=== PATIENT | female | born 1995 | race Caucasian/White ===

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

== ENCOUNTER 2017-02-04 18:30 | Emergency (ER) | payer OTHER ==
[2017-02-04 18:38] VITALS: BP 132/78; PULSE 133; TEMP 98.4; BMI 21.7
--- NOTE | 2017-02-04 19:53 | PDOC ---
History of Present Illness <Olinda Carrasco - Last Filed: 02/05/17 00:33> <Araseli Campoverde - Last Filed: 02/06/17 02:24> - General Chief Complaint: Pain Stated Complaint: PAIN Time Seen by Provider: 02/04/17 19:28 - History of Present Illness Initial Comments: 02/04/17 22:01 Patient is a 21 year old female with significant medical hx of IUD insertion, asthma, migraines, and hemorrhoids who is presenting to the ED with epigastric pain and one episode of vomiting since yesterday. The patient complains of abdominal pain that is diffuse but worse in her epigastric region. She also complains of bilateral lower back pain. Denies fevers, chills, diarrhea, or dysuria. The patient denies any sick contacts and reports her children have been healthy. LNMP: 12/2016 Allergies: NKDA (Olinda Carrasco) Past History <DaniloOlinda - Last Filed: 02/05/17 00:33> - Past Medical History Asthma: Yes (Last attack 8yrs ago) Cancer: No Cardiac Disorders: No Diabetes: No HTN: No Seizures: No Thyroid Disease: No - Family Disease History Family Disease History: Diabetes: Grandparents (MGM) - Immunization History Immunization Up to Date: Yes - Psycho/Social/Smoking Cessation Hx Anxiety: No Suicidal Ideation: No Smoking Status: No Smoking History: Current some day smoker Have you smoked in the past 12 months: No Number of Cigarettes Smoked Daily: 3 Information on smoking cessation initiated: No Hx Alcohol Use: No Drug/Substance Use Hx: No Substance Use Type: None Hx Substance Use Treatment: No <Araseli Campoverde - Last Filed: 02/06/17 02:24> - Past Medical History Allergies/Adverse Reactions: Allergies Allergy/AdvReac Type Severity Reaction Status Date / Time latex Allergy Mild Swelling Verified 02/04/17 18:36 [place] FOOD Allergy Intermediate Swelling Uncoded 02/04/17 18:36 Home Medications: Ambulatory Orders Ibuprofen 800 mg PO TID PRN #21 tablet 10/23/16 Review of Systems <Olinda Carrasco - Last Filed: 02/05/17 00:33> <Araseli Campoverde - Last Filed: 02/06/17 02:24> - Review of Systems Comments:: 02/04/17 22:03 CONSTITUTIONAL: Absent: fever, chills, diaphoresis, generalized weakness, malaise, loss of appetite HEENT: Absent: rhinorrhea, nasal congestion, throat pain, throat swelling, difficulty swallowing, mouth swelling, ear pain, eye pain, visual changes CARDIOVASCULAR: Absent: chest pain, syncope, palpitations, irregular heart rate, lightheadedness , peripheral edema RESPIRATORY: Absent: cough, shortness of breath, dyspnea with exertion, orthopnea, wheezing, stridor, hemoptysis GASTROINTESTINAL: Present: abdominal pain, nausea, vomiting Absent: abdominal distension, diarrhea, constipation, melena, hematochezia GENITOURINARY: Absent: dysuria, frequency, urgency, hesitancy, hematuria, flank pain, genital pain MUSCULOSKELETAL: Present: lower back pain Absent: myalgia, arthralgia, joint swelling SKIN: Absent: rash, itching, pallor HEMATOLOGIC/IMMUNOLOGIC: Absent: easy bleeding, easy bruising, lymphadenopathy, frequent infections ENDOCRINE: Absent: unexplained weight gain, unexplained weight loss, heat intolerance, cold intolerance NEUROLOGIC: Absent: headache, focal weakness or paresthesia, dizziness, unsteady gait, seizure, mental status changes, bladder or bowel incontinence. PSYCHIATRIC: Absent: anxiety, depression, suicidal or homicidal ideation, hallucinations (Olinda Carrasco) *Physical Exam <Olinda Carrasco - Last Filed: 02/05/17 00:33> <Araseli Campoverde - Last Filed: 02/06/17 02:24> - Vital Signs Last Vital Signs Temp Pulse Resp BP Pulse Ox 98.4 F 133 H 18 132/78 100 02/04/17 18:36 02/04/17 18:36 02/04/17 18:36 02/04/17 18:36 02/04/17 18:36 - Physical Exam Comments: 02/04/17 22:03 GENERAL: Well developed, well nourished. Awake and alert. No acute distress. HEENT: Normocephalic, atraumatic. PERRLA, EOMI. No conjunctival pallor. Sclera are non- icteric. Moist mucous membranes. Oropharynx is clear. NECK: Supple. Full ROM. No JVD. Carotid pulses 2+ and symmetric, without bruits. No thyromegaly. No lymphadenopathy. CARDIOVASCULAR: Regular rate and rhythm. No murmurs, rubs, or gallops. Distal pulses are 2+ and symmetric. PULMONARY: No evidence of respiratory distress. Lungs clear to auscultation bilaterally. No wheezing, rales or rhonchi. ABDOMINAL: Soft. Epigastric and periumbilical tenderness to palpation. Non-distended. No rebound or guarding. No organomegaly. Normoactive bowel sounds. MUSCULOSKELETAL: Normal range of motion at all joints. No bony deformities or tenderness. No CVA tenderness. EXTREMITIES: No cyanosis. No clubbing. No edema. No calf tenderness. SKIN: Warm and dry. Normal capillary refill. No rashes. No jaundice. NEUROLOGICAL: Alert, awake, appropriate. Cranial nerves 2-12 intact. Normal speech. Gait is normal without ataxia. PSYCHIATRIC: Cooperative. Good eye contact. Appropriate mood and affect. (Olinda Carrasco) ED Treatment Course - LABORATORY CBC & Chemistry Diagram: 02/04/17 21:00 02/04/17 21:00 <Olinda Carrasco - Last Filed: 02/05/17 00:33> - LABORATORY CBC & Chemistry Diagram: 02/04/17 21:00 02/04/17 21:00 <Araseli Campoverde - Last Filed: 02/06/17 02:24> - ADDITIONAL ORDERS Additional order review: Laboratory Results 02/04/17 22:05 Ur Specific [place] 1.020 02/04/17 21:00 RBC 4.35 MCV 95.0 MCHC 32.8 RDW 12.7 MPV 7.9 Neutrophils % 88.4 H D Lymphocytes % 7.5 L D Monocytes % 3.7 L Eosinophils % 0.3 D Basophils % 0.1 - RADIOLOGY Radiology Studies Ordered: Category Date Time Status ABDOMEN & PELVIS CT WITH CONTR [CT] Stat CT Scan 02/05/17 01:46 Completed ABDOMEN US -LIMITED [US] Stat Ultrasound 02/04/17 22:44 Completed Radiograph Interpretation: 02/05/17 00:34 Abdomen US Impression: Unremarkable examination. No gallstones are identified. Reported By: Vadim Marroquin MD (Olinda Carrasco) - Medications Given in the ED: ED Medications Discontinued Medications Generic Name Dose Route Start Last Admin Trade Name Freq PRN Reason Stop Dose Admin Sodium Chloride 1,000 mls @ 1,000 mls/hr 02/04/17 20:14 02/04/17 21:57 Normal Saline - IV 02/04/17 21:13 1,000 mls/hr ASDIR STA Administration Ondansetron HCl 4 mg 02/04/17 20:14 02/04/17 21:57 Zofran Injection IVPB 02/04/17 20:15 4 mg ONCE ONE Administration Medical Decision Making <Olinda Carrasco - Last Filed: 02/05/17 00:33> <Araseli Campoverde - Last Filed: 02/06/17 02:24> - Medical Decision Making 02/05/17 03:11 17-year-old female presents with vomiting and abdominal pain for one day Negative test Normal CBC Chemistries essentially unremarkable CAT scan of the abdomen shows normal appendix, normal pelvis, no discrete lymphadenopathy, no obstructing kidney stones. Normal liver, gallbladder, pancreas, spleen, adrenal glands and left kidney. There are 2 tiny nonobstructing right kidney stones IMP Gastritis 02/06/17 02:24 (Araseli Campoverde) *DC/Admit/Observation/Transfer <Olinda Carrasco - Last Filed: 02/05/17 00:33> <Araseli Campoverde - Last Filed: 02/06/17 02:24> Diagnosis at time of Disposition: Abdominal pain Qualifiers: Abdominal location: periumbilical Qualified Code(s): R10.33 - Periumbilical pain Vomiting Qualifiers: Vomiting type: unspecified Vomiting Intractability: non-intractable Nausea presence: with nausea Qualified Code(s): R11.2 - Nausea with vomiting, unspecified - Discharge Dispostion Disposition: HOME Condition at time of disposition: Improved - Referrals Referrals: Joe Buck MD [Primary Care Provider] - - Patient Instructions Printed Discharge Instructions: DI for Abdominal Pain-Adult, DI for Gastritis Additional Instructions: please advance your diet as tolerated - Attestations Scribe Attestion: 02/04/17 22:04 Documentation prepared by Olinda Carrasco, acting as medical support assistant for Araseli Campoverde MD. (Olinda Carrasco)
[2017-02-04] MEDS ORDERED: SODIUM CHLORIDE 1,000 ML IV STA (20:14)
[2017-02-04] MEDS ORDERED: ONDANSETRON 4 MG/2 ML VIAL IVPB ONE (20:14)
[2017-02-04 21:39] LABS: BASOPHIL 0.1 % (0-2.0); EOSINOPHIL 0.3 % (0-4.5); MCH 31.2 pg (25.7-33.7); MCHC 32.8 g/dl (32.0-36.0); MEAN PLT VOLUME 7.9 fl (7.5-11.1); NEUTROPHILS 88.4 % (42.8-82.8); PLATELET COUNT 178 K/MM3 (134-434); RDW 12.7 % (11.6-15.6); WHITE BLOOD COUNT 6.3 K/mm3 (4.0-10.0)
[2017-02-04] MEDS ORDERED: ONDANSETRON 4 MG/2 ML VIAL ONE (21:40)
[2017-02-04 22:09] LABS: ALBUMIN 4.3 g/dl (3.4-5.0); ALK PHOS 48 U/L (45-117); ANION GAP 9 (8-16); BILIRUBIN,TOTAL 1.3 mg/dL (0.2-1.0); CO2 25 mmol/L (21-32); CREATININE 0.6 mg/dL (0.55-1.02); GLUCOSE,RANDOM 90 mg/dL (74-106); SGOT/AST 11 U/L (15-37); SGPT/ALT 17 U/L (12-78); TOT PROT 7.3 g/dl (6.4-8.2)
[2017-02-04 22:58] LABS: URINE APPEARANCE CLEAR; URINE BILIRUBIN NEGATIVE (NEGATIVE); URINE BLOOD NEGATIVE (NEGATIVE); URINE COLOR YELLOW; URINE GLUCOSE (UA) NEGATIVE (NEGATIVE); URINE KETONE NEGATIVE (NEGATIVE); URINE LEUK ESTERASE NEGATIVE (NEGATIVE); URINE NITRITE NEGATIVE (NEGATIVE); URINE PROTEIN NEGATIVE (NEGATIVE); URINE UROBILINOGEN 2.0 E.U/dl E.U./dl (0.2-1.0)
== END 2017-02-05 03:30 | disposition home or self-care (01) ==
LOC: JER 18:30
PROC: 3E033GC Introduction of Other Therapeutic Substance into Peripheral Vein, Percutaneous Approach (ICD-10-PCS; principal; 2017-02-04)
DX: K29.00 Acute gastritis without bleeding (principal); J45.909 Unspecified asthma, uncomplicated; G43.909 Migraine, unspecified, not intractable, without status migrainosus; F17.210 Nicotine dependence, cigarettes, uncomplicated; Z97.5 Presence of (intrauterine) contraceptive device
CPT/HCPCS: 36415; 74177-TC; 76705-TC; 80053; 81003; 83690; 84703; 85025; 96374; 99282-25

== ENCOUNTER 2018-03-18 16:51 | Emergency (ER) | payer OTHER ==
[2018-03-18 16:58] VITALS: BP 132/79; PULSE 112; TEMP 99.6; BMI 21.9
--- NOTE | 2018-03-18 17:06 | PDOC ---
Rapid Medical Evaluation Chief Complaint: Sore Throat Time Seen by Provider: 03/18/18 17:02 Medical Evaluation: Allergies Allergy/AdvReac Type Severity Reaction Status Date / Time latex Allergy Mild Swelling Verified 03/18/18 16:56 [place] FOOD Allergy Intermediate Swelling Uncoded 03/18/18 16:56 Vital Signs Temp Pulse Resp BP Pulse Ox 99.6 F 112 H 18 132/79 97 03/18/18 16:57 03/18/18 16:57 03/18/18 16:57 03/18/18 16:57 03/18/18 16:57 03/18/18 17:05 Patient c/o: sore throat and fever since this am Patient on brief exam: mild erthema, low grade temp Patient ordered for: rapid strep Patient to proceed to the ED Discharge Disposition - Diagnosis Sore throat - Referrals - Patient Instructions - Post Discharge Activity
[2018-03-18] MEDS ORDERED: PENICILLIN G BENZATHINE 1,200,000 UNIT/2 ML PFS IM ONE (17:31)
[2018-03-18] MEDS ORDERED: PENICILLIN G BENZATHINE 2,400,000 UNIT/4 ML PFS ONE (17:36)
--- NOTE | 2018-03-18 17:39 | PDOC ---
History of Present Illness - General Chief Complaint: Sore Throat Stated Complaint: PAIN Time Seen by Provider: 03/18/18 17:02 History Source: Patient Exam Limitations: No Limitations - History of Present Illness Occurred: reports: yesterday Severity: reports: moderate Pain Location: reports: none Modifying Factors: improves with: pain medication Associated Symptoms (Fall): lightheadedness, nausea/vomiting Past History - Travel Traveled outside of the country in the last 30 days: No Close contact w/someone who was outside of country & ill: No - Past Medical History Allergies/Adverse Reactions: Allergies Allergy/AdvReac Type Severity Reaction Status Date / Time latex Allergy Mild Swelling Verified 03/18/18 16:56 [place] FOOD Allergy Intermediate Swelling Uncoded 03/18/18 16:56 Home Medications: Ambulatory Orders Ibuprofen 400 mg PO Q6H PRN #30 tablet 03/18/18 Asthma: Yes (Last attack 8yrs ago) Cancer: No Cardiac Disorders: No CVA: No COPD: No Diabetes: No HTN: No Seizures: No Thyroid Disease: No - Family Disease History Family Disease History: Diabetes: Grandparents (MGM) - Immunization History Immunization Up to Date: Yes - Suicide/Smoking/Psychosocial Hx Smoking Status: No Smoking History: Former smoker Have you smoked in the past 12 months: Yes Number of Cigarettes Smoked Daily: 2 If you are a former smoker, when did you quit?: 2 months ago Information on smoking cessation initiated: No Hx Alcohol Use: No Drug/Substance Use Hx: No Substance Use Type: None Hx Substance Use Treatment: No Review of Systems - Review of Systems Able to Perform ROS?: Yes Is the patient limited Maori proficient: Yes Constitutional: Yes: Symptoms Reported, See HPI, Fever, Loss of Appetite, Malaise HEENTM: Yes: Symptoms Reported, See HPI, Nose Congestion, Throat Pain, Throat Swelling, Difficulty Swallowing Respiratory: Yes: See HPI, Cough Musculoskeletal: Yes: Symptoms Reported, See HPI Integumentary: No: Symptoms Reported Neurological: Yes: Symptoms reported, See HPI, Headache All Other Systems: Reviewed and Negative *Physical Exam - Vital Signs Last Vital Signs Temp Pulse Resp BP Pulse Ox 99.6 F 112 H 18 132/79 97 03/18/18 16:57 03/18/18 16:57 03/18/18 16:57 03/18/18 16:57 03/18/18 16:57 - Physical Exam General Appearance: Yes: Nourished, Appropriately Dressed, Apparent Distress, Mild Distress, Moderate Distress HEENT: positive: DIA, TMs Normal (congested ), Pharyngeal Erythema, Tonsillar Exudate, Tonsillar Erythema, Rhinorrhea, Sinus Tenderness. 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 1 owner operator II-XII NML intact, Fully Oriented, Alert, Normal Mood/ Affect, Normal Response, Motor Strength 02/01 Progress Note - Progress Note Progress Note: Pharyngitis, probable strep Will treat with Bicillin 1.2 million units IM and no reaction observed after 30 minutes *DC/Admit/Observation/Transfer Diagnosis at time of Disposition: Pharyngitis Qualifiers: Pharyngitis/tonsillitis etiology: other specified organisms Qualified Code(s): J02.8 - Acute pharyngitis due to other specified organisms - Discharge Dispostion Disposition: HOME Condition at time of disposition: Stable Decision to Admit order: No - Referrals Referrals: Ita Buck MD [Primary Care Provider] - - Patient Instructions Printed Discharge Instructions: DI for Pharyngitis/Tonsillopharyngitis -- Adult Additional Instructions: Rest, drink lots of fluids: Teas, water, soups Eat cold things: Ice cream, ice pops, ice chips Saltwater gargles Steamy showers/seem to face break up mucus Avoid contact with others until fevers and pain resolved Lots of handwashing and good hygiene, this is contagious You have been treated with Bicillin LA 1.2 million units injection which is a one-time treatment for strep pharyngitis. You will not need to take any further antibiotics. Tylenol or Motrin for fever and pain Followup with private physician in one to 2 days as needed if not improving Return to emergency department for worsened symptoms, fevers, dehydration - Post Discharge Activity Forms/Work/School Notes: Back to Work
--- NOTE | 2018-03-23 07:43 | PDOC ---
Patient Follow-up (Call Back) - Post ED Follow - Up Condition at time of discharge: Stable Disposition at time of original discharge: HOME Reason for Call Back: Abnwl. Microbiology (Pt with Beta Hem. Strep Group F on throat culture. Pt. treated with Bicillin in the ED. No further treatment needed at this time.)
== END 2018-03-18 17:46 | disposition home or self-care (01) ==
LOC: JERFT 16:51
DX: J02.9 Acute pharyngitis, unspecified (principal)
CPT/HCPCS: 87070; 87077; 87430; 96372; 99281-25

== ENCOUNTER 2018-12-04 19:19 | Emergency (ER) | payer OTHER ==
[2018-12-04 20:01] VITALS: BP 118/71; PULSE 98; TEMP 98; BMI 20.1
--- NOTE | 2018-12-04 20:12 | PDOC ---
Rapid Medical Evaluation Chief Complaint: Urinary Problem Medical Evaluation: Allergies Allergy/AdvReac Type Severity Reaction Status Date / Time latex Allergy Mild Swelling Verified 05/27/18 18:07 PERSIAN FOOD Allergy Intermediate Swelling Uncoded 05/27/18 18:07 12/04/18 19:58 I have performed a brief in-person evaluation of this patient. The patient presents with a chief complaint of: dysuria, pain / burning Pertinent physical exam findings: I have ordered the following: UA/ UrineCx / UcG The patient will proceed to the ED for further evaluation. Discharge Disposition - Diagnosis Dysuria - Referrals - Patient Instructions - Post Discharge Activity
[2018-12-04] MEDS ORDERED: AZITHROMYCIN 500 MG TABLET PO ONE (21:44)
--- NOTE | 2018-12-04 21:50 | PDOC ---
History of Present Illness <Sean Charles - Last Filed: 12/05/18 01:23> - History of Present Illness Initial Comments: 12/04/18 21:44 23 year old c/o burning on urination, foul smelling vaginal discharge x 3 days. reports worsening after douching. patient also reports that she has 2 partners unsure of STI exposure 12/04/18 21:46 <Angie Campoverde - Last Filed: 12/08/18 00:25> - General Chief Complaint: Urinary Problem Stated Complaint: BURNING WITH URINATION Time Seen by Provider: 12/04/18 21:16 Past History <Sean Charles - Last Filed: 12/05/18 01:23> - Past Medical History Asthma: Yes (Last attack 8yrs ago) Cancer: No Cardiac Disorders: No CVA: No COPD: No Diabetes: No HTN: No Seizures: No Thyroid Disease: No - Family Disease History Family Disease History: Diabetes: Grandparents (MGM) - Immunization History Immunization Up to Date: Yes - Suicide/Smoking/Psychosocial Hx Smoking Status: No Smoking History: Never smoked Have you smoked in the past 12 months: No Number of Cigarettes Smoked Daily: 2 If you are a former smoker, when did you quit?: 2 months ago Information on smoking cessation initiated: No Hx Alcohol Use: No Drug/Substance Use Hx: No Substance Use Type: None Hx Substance Use Treatment: No <Angie Campoverde - Last Filed: 12/08/18 00:25> - Past Medical History Allergies/Adverse Reactions: Allergies Allergy/AdvReac Type Severity Reaction Status Date / Time latex Allergy Mild Swelling Verified 12/04/18 21:44 SRI [place] FOOD Allergy Intermediate Swelling Uncoded 12/04/18 20:00 Home Medications: Ambulatory Orders metroNIDAZOLE 0.75% VAG. GEL [Metrogel 0.75% *Vaginal Gel* -] 1 applic VG BID # 10 tube 12/04/18 Review of Systems - Review of Systems Able to Perform ROS?: Yes Is the patient limited Kinyarwanda proficient: No Constitutional: No: Symptoms Reported, See HPI, Chills, Diaphoresis, Fever, Loss of Appetite, Malaise, Night Sweats, Weakness, Weight Stable, Unintentional Wgt. Loss, Unexplained wgt Loss, Other : Yes: Burning, Dysuria, Other (vaginal discharge) <Angie Campoverde - Last Filed: 12/08/18 00:25> *Physical Exam - Vital Signs Last Vital Signs Temp Pulse Resp BP Pulse Ox 98.0 F 98 H 16 118/71 100 12/04/18 19:59 12/04/18 19:59 12/04/18 19:59 12/04/18 19:59 12/04/18 19:59 <Sean Charles - Last Filed: 12/05/18 01:23> - Vital Signs Last Vital Signs Temp Pulse Resp BP Pulse Ox 98.0 F 98 H 16 118/71 100 12/04/18 19:59 12/04/18 19:59 12/04/18 19:59 12/04/18 19:59 12/04/18 19:59 - Physical Exam General Appearance: Yes: Appropriately Dressed Female Pelvic Exam: positive: normal external exam, cervical os closed, normal adnexa, other (green vaginal discharge) Gastrointestinal/Abdominal: positive: Normal Bowel Sounds, Soft. negative: Tender Musculoskeletal: positive: Normal Inspection Extremity: positive: Normal Capillary Refill, Normal Inspection, Normal Range of Motion Integumentary: positive: Normal Color, Dry, Warm Neurologic: positive: Fully Oriented, Alert, Normal Mood/Affect <Angie Campoverde - Last Filed: 12/08/18 00:25> Moderate Sedation - Procedure Monitoring Vital Signs: Procedure Monitoring Vital Signs Temperature 98.0 F 12/04/18 19:59 Pulse Rate 98 H 12/04/18 19:59 Respiratory Rate 16 12/04/18 19:59 Blood Pressure 118/71 12/04/18 19:59 O2 Sat by Pulse Oximetry (%) 100 12/04/18 19:59 <Sean Charles - Last Filed: 12/05/18 01:23> - Procedure Monitoring Vital Signs: Procedure Monitoring Vital Signs Temperature 98.0 F 12/04/18 19:59 Pulse Rate 98 H 12/04/18 19:59 Respiratory Rate 16 12/04/18 19:59 Blood Pressure 118/71 12/04/18 19:59 O2 Sat by Pulse Oximetry (%) 100 12/04/18 19:59 <Angie Campoverde - Last Filed: 12/08/18 00:25> ED Treatment Course - ADDITIONAL ORDERS Additional order review: Laboratory Results 12/04/18 21:37 Urine Color Dkyellow Urine Appearance Turbid Urine pH 8.0 Ur Specific [place] 1.024 Urine Protein 1+ H Urine Glucose (UA) Negative Urine Ketones Negative Urine Blood Negative Urine Nitrite Negative Urine Bilirubin Negative Urine Urobilinogen 4.0 e.u/dl H Ur Leukocyte Esterase Negative Urine WBC (Auto) None Urine RBC (Auto) 3 Urine Mucus Rare Urine HCG, Qual Negative - Medications Given in the ED: ED Medications Discontinued Medications Generic Name Dose Route Start Last Admin Trade Name Lise PRN Reason Stop Dose Admin Azithromycin 1,000 mg 12/04/18 21:44 12/04/18 22:08 Zithromax PO 12/04/18 21:45 1,000 mg ONCE ONE Administration Ceftriaxone Sodium 250 mg 12/04/18 21:44 12/04/18 22:08 Rocephin - IM 12/04/18 21:45 250 mg ONCE ONE Administration <Sean Charles - Last Filed: 12/05/18 01:23> Progress Note - Progress Note Progress Note: A: vaginal discharge UA UCX GC URINE <Angie Campoverde - Last Filed: 12/08/18 00:25> Medical Decision Making - Medical Decision Making patient signed out to Luca Charles <Angie Campoverde - Last Filed: 12/08/18 00:25> *DC/Admit/Observation/Transfer <Sean Charles - Last Filed: 12/05/18 01:23> <Angie Campoverde - Last Filed: 12/08/18 00:25> Diagnosis at time of Disposition: Dysuria, Bacterial vaginal infection, STI (sexually transmitted infection) - Discharge Dispostion Disposition: HOME Condition at time of disposition: Fair - Prescriptions Prescriptions: metroNIDAZOLE 0.75% VAG. GEL [Metrogel 0.75% *Vaginal Gel* -] 1 applic VG BID # 10 tube - Referrals Referrals: Joe Buck MD [Primary Care Provider] - - Patient Instructions Printed Discharge Instructions: Bacterial Vaginosis Additional Instructions: You been treated today with azithromycin 1 g by mouth for treatment of presumed chlamydia You have been treated with Rocephin 250 mg injection for treatment of presumed gonorrhea The gonorrhea and chlamydia testing will not be completed for the next few days. You may call and leave message for return phone call with lab results. Be sure to be clear with your name, birthdate, and phone number Always use condoms with the partners Followup with [facility] OPERATOR or PMD in one week for reevaluation and retesting. - Post Discharge Activity Forms/Work/School Notes: Parent(s) Back to Work Note
[2018-12-04] MEDS ORDERED: AZITHROMYCIN 250 MG TABLET ONE (22:00)
[2018-12-05 00:41] LABS: URINE APPEARANCE TURBID; URINE BILIRUBIN NEGATIVE (<2.0 mg/dL); URINE COLOR DKYELLOW; URINE GLUCOSE (UA) NEGATIVE (NEGATIVE); URINE KETONE NEGATIVE (NEGATIVE); URINE LEUK ESTERASE NEGATIVE (NEGATIVE); URINE NITRITE NEGATIVE (NEGATIVE); URINE PROTEIN 1+ (NEGATIVE); URINE UROBILINOGEN 4.0 E.U/dl mg/dL (0.2-1.0)
[2018-12-05 00:43] LABS: HCG,QUALITATIVE URINE Negative
[2018-12-05 01:10] LABS: URINE MUCUS RARE
== END 2018-12-05 01:15 | disposition home or self-care (01) ==
LOC: JERFT 19:19
DX: N76.0 Acute vaginitis (principal); B96.89 Other specified bacterial agents as the cause of diseases classified elsewhere; A64 Unspecified sexually transmitted disease
CPT/HCPCS: 36415; 81003; 81015; 84703; 87086; 87491; 87591; 99281-25

== ENCOUNTER 2019-06-24 23:25 | Emergency (ER) | payer OTHER ==
[2019-06-24 23:32] VITALS: BP 103/58; PULSE 100; TEMP 98.3; BMI 20.7
== END 2019-06-25 01:26 | disposition left against medical advice (07) ==
LOC: JER 23:25
DX: Z53.21 Procedure and treatment not carried out due to patient leaving prior to being seen by health care provider (principal)
CPT/HCPCS: 99281-25

== ENCOUNTER 2019-06-26 00:26 | Emergency (ER) | payer OTHER ==
[2019-06-26 00:57] VITALS: TEMP 98.9; BMI 20.7
--- NOTE | 2019-06-26 01:18 | PDOC ---
History of Present Illness - General Chief Complaint: Respiratory Stated Complaint: DIFFICULTY BREATHING Time Seen by Provider: 06/26/19 00:59 History Source: Patient Exam Limitations: No Limitations - History of Present Illness Initial Comments: 06/26/19 01:16 24yo F with remote history of Asthma at the age of 9 presenting to ED with complaints of cough, congestion, sob x2d. She says yesterday she had a dry cough but today the cough is worse with production of yellow sputum. Also endorses congestion, sore throat. Denies fever, chills, abdominal pain, n/v/d, weakness, sick contacts. Past History - Past Medical History Allergies/Adverse Reactions: Allergies Allergy/AdvReac Type Severity Reaction Status Date / Time latex Allergy Mild Swelling Verified 06/26/19 00:54 [place] FO[employer] Allergy Intermediate Swelling Uncoded 06/26/19 00:54 Home Medications: Ambulatory Orders metroNIDAZOLE 0.75% VAG. GEL [Metrogel 0.75% *Vaginal Gel* -] 1 applic VG BID # 10 tube 12/04/18 Asthma: Yes (Last attack 8yrs ago) Cancer: No Cardiac Disorders: No CVA: No COPD: No Diabetes: No HTN: No Seizures: No Thyroid Disease: No - Immunization History Immunization Up to Date: Yes - Psycho Social/Smoking Cessation Hx Smoking Status: No Smoking History: Never smoked Have you smoked in the past 12 months: No Number of Cigarettes Smoked Daily: 1 If you are a former smoker, when did you quit?: 2 months ago Information on smoking cessation initiated: No Hx Alcohol Use: No Drug/Substance Use Hx: No Substance Use Type: None Hx Substance Use Treatment: No Review of Systems - Review of Systems Constitutional: No: Chills, Fever, Loss of Appetite HEENTM: Yes: See HPI Respiratory: Yes: See HPI Cardiac (ROS): No: Symptoms Reported ABD/GI: No: Symptoms Reported : No: Symptoms Reported Musculoskeletal: No: Symptoms Reported Integumentary: No: Symptoms Reported Neurological: No: Symptoms reported *Physical Exam - Vital Signs Last Vital Signs Temp Pulse Resp BP Pulse Ox 98.9 F 98 H 22 H 103/66 97 06/26/19 00:35 06/26/19 00:35 06/26/19 00:35 06/26/19 00:35 06/26/19 00:35 - Physical Exam General Appearance: Yes: Nourished, Appropriately Dressed. No: Apparent Distress HEENT: positive: EOMI, Pharynx Normal, Nasal Congestion. negative: Rhinorrhea, Sinus Tenderness Neck: positive: Trachea midline, Supple. negative: Lymphadenopathy (R), Lymphadenopathy (L) Respiratory/Chest: positive: Lungs Clear, Normal Breath Sounds. negative: Crackles, Rales, Rhonchi, Stridor, Wheezing Cardiovascular: positive: Regular Rhythm, Regular Rate. negative: Edema, JVD, Murmur Gastrointestinal/Abdominal: positive: Normal Bowel Sounds, Soft. negative: Tender Extremity: positive: Normal Capillary Refill. 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 ddx includes but not limited to uri, strep, bronchitis, pna PERC negative. will test for strep and give motrin. strep negative. pt not in respiratory distress, speaking full sentences, no accessory muscle use. likely viral infection. low suspicion for pna. will give strict return precautions and dc instructions. pt agrees to plan. Discharge - Discharge Information Problems reviewed: Yes Clinical Impression/Diagnosis: Viral URI, Cough Condition: Good Disposition: HOME - Admission No - Follow up/Referral - Patient Discharge Instructions Patient Printed Discharge Instructions: DI for Common Cold Additional Instructions: You were seen in the emergency room today for cough and shortness of breath. The strep test is negative. You most likely have a viral illness. I recommend that you take ibuprofen or Tylenol for pain/fevers, drink plenty of fluids. You can use nasal spray to help reduce congestion. Please come back to the emergency room for increasing fevers, worsening shortness of breath, you have worsening chest pain or if any new concerning symptom develops. Thank you - Post Discharge Activity
[2019-06-26] MEDS ORDERED: IBUPROFEN 600 MG TABLET (FP) PO ONE ×2 (01:19→01:24)
--- NOTE | 2019-06-26 02:50 | PDOC ---
Attending Attestation - Resident Resident Name: Shameka Burns - ED Attending Attestation I have performed the following: I have examined & evaluated the patient, The case was reviewed & discussed with the resident, I agree w/resident's findings & plan, Exceptions are as noted - HPI HPI: 06/26/19 02:48 24F pmh Asthma here with congestion, sob, productive cough for the past 2 days, a/w sore throat, denies f/c, n/v, d/c, sick contacts, recent travel - Physicial Exam PE: 06/26/19 02:49 Agree with exam as documented by resident - Medical Decision Making 06/26/19 02:50 Patient here with URI symptoms, consider, pna, strep symptomatic tx clinical improvement DC with return instructions, pcp f/u
[2019-06-26 04:19] VITALS: BP 103/60; PULSE 90
== END 2019-06-26 02:16 | disposition home or self-care (01) ==
LOC: JER 00:26
DX: J06.9 Acute upper respiratory infection, unspecified (principal); B97.89 Other viral agents as the cause of diseases classified elsewhere; Z91.040 Latex allergy status; Z91.018 Allergy to other foods; Z87.09 Personal history of other diseases of the respiratory system
CPT/HCPCS: 87070; 87880; 99281-25

== ENCOUNTER 2019-11-28 22:40 | Emergency (ER) | payer OTHER ==
[2019-11-28 22:47] VITALS: BP 112/64; PULSE 93; TEMP 97.9; BMI 20.5
--- NOTE | 2019-11-28 22:51 | PDOC ---
History of Present Illness - General Chief Complaint: Vaginal Bleeding Stated Complaint: BLEEDING/ABD/PAIN Time Seen by Provider: 11/28/19 22:50 History Source: Patient Exam Limitations: No Limitations - History of Present Illness Initial Comments: 24-year-old female with no past medical history A0 presented to the emergency department for vaginal bleeding since yesterday. Patient reported her last menstrual period started a couple of days after . She reported two days ago she started having her period again, which was unexpected for the time of the month. She reported yesterday she was outside with her aunt and as she stepped into the car and sat down she felt lightheaded, and had a syncopal episode last in a couple of minutes witness by her aunt. She reported the aunt told her she "had to give me water". She reported using two tampons today, one was soaked (which was the one she used overnight). She denied chest pain, shortness of breath, nausea, vomiting, diarrhea. She reported her control method is the Nexplanon implant, which she has been supposed to have her move her arm for many years. ROS General: denied fever, chills, generalized weakness. HEENT: denied sore throat, rhinorrhea, ear pain. Cardiovascular: denied chest pain, palpitations, syncope, diaphoresis. Respiratory: denied shortness of breath, cough, sputum production, hemoptysis. Gastrointestinal: admitted to abdominal pain. denied nausea, vomiting, diarrhea , constipation, blood in stool. Genitourinary: admitted to pelvic pain, vaginal bleeding. denied dysuria, increased urinary frequency, hematuria, urinary incontinence, flank pain. Back: denied back pain. Musculoskeletal: denied joint pain, muscle pain, joint swelling. Neurological: denied headache, dizziness, numbness, tingling, weakness. Integumentary: denied rash, laceration, abrasion. Hematologic/Lymphatic: denied bruising or bleeding. PE Constitutional: Well-nourished, Well-developed, appearing stated age. HEENT: head is normocephalic, atraumatic. EOMI. PERRLA. Neck: supple. Full ROM. Cardiovascular: regular heart rhythm. Normal S1 and S2. no murmurs. no pericardial friction rub. Respiratory: clear to auscultation bilaterally. no crackles, rhonchi or wheezing. no stridor. Gastrointestinal: soft, flat, nontender. normal bowel sounds. no rebound, guarding, or masses. Extremities: peripheral pulses intact and equal. no lower extremity edema noted. Neurological: CN 2-12 grossly intact. moves all four extremities. Psych: awake, alert, oriented x3. follows commands. answers questions appropriately. Pelvic: normal external genitalia. scant blood in vaginal vault. no CMT. no adnexal tenderness. cervical os closed. Past History - Past Medical History Allergies/Adverse Reactions: Allergies Allergy/AdvReac Type Severity Reaction Status Date / Time latex Allergy Mild Swelling Verified 11/28/19 22:47 [place] FOOD Allergy Intermediate Swelling Uncoded 11/28/19 22:47 Home Medications: Ambulatory Orders NK [No Known Home Medication] 11/29/19 - Psycho Social/Smoking Cessation Hx Number of Cigarettes Smoked Daily: 1 If you are a former smoker, when did you quit?: 2 months ago *Physical Exam - Vital Signs Last Vital Signs Temp Pulse Resp BP Pulse Ox 97.9 F 93 H 18 112/64 100 11/28/19 22:44 11/28/19 22:44 11/28/19 22:44 11/28/19 22:44 11/28/19 22:44 ED Treatment Course - LABORATORY CBC & Chemistry Diagram: 11/28/19 23:10 11/28/19 23:10 Medical Decision Making - Medical Decision Making 24 year old female with above PMH presented to ED for evaluation of vaginal bleeding associated with crampy lower abdominal pain + syncopal episode. Initial Vital Signs Temp Pulse Resp BP Pulse Ox 97.9 F 93 H 18 112/64 100 11/28/19 22:44 11/28/19 22:44 11/28/19 22:44 11/28/19 22:44 11/28/19 22:44 Afebrile. No tachycardia. No tachypnea. No hypotension. No hypoxia on room air. 11/29/19 00:18 Laboratory Last Values WBC 5.1 K/mm3 (4.0-10.0) 11/28/19 23:10 RBC 3.71 M/mm3 (3.60-5.2) 11/28/19 23:10 Hgb 12.4 GM/dL (10.7-15.3) 11/28/19 23:10 Hct 36.0 % (32.4-45.2) 11/28/19 23:10 MCV 97.1 fl (80-96) H 11/28/19 23:10 MCH 33.5 pg (25.7-33.7) 11/28/19 23:10 MCHC 34.5 g/dl (32.0-36.0) 11/28/19 23:10 RDW 12.8 % (11.6-15.6) 11/28/19 23:10 Plt Count 208 K/MM3 (134-434) 11/28/19 23:10 MPV 7.8 fl (7.5-11.1) 11/28/19 23:10 Absolute Neuts (auto) 2.2 K/mm3 (1.5-8.0) 11/28/19 23:10 Neutrophils % 43.1 % (42.8-82.8) D 11/28/19 23:10 Lymphocytes % 42.4 % (8-40) H D 11/28/19 23:10 Monocytes % 9.6 % (3.8-10.2) D 11/28/19 23:10 Eosinophils % 4.1 % (0-4.5) D 11/28/19 23:10 Basophils % 0.8 % (0-2.0) D 11/28/19 23:10 Nucleated RBC % 0 % (0-0) 11/28/19 23:10 PT with INR 12.40 SEC (9.7-13.0) 11/28/19 23:10 INR 1.05 (0.83-1.09) 11/28/19 23:10 PTT (Actin FS) 36.7 SECONDS (25.2-36.5) H 11/28/19 23:10 Sodium 142 mmol/L (136-145) 11/28/19 23:10 Potassium 3.9 mmol/L (3.5-5.1) 11/28/19 23:10 Chloride 113 mmol/L (98-107) H 11/28/19 23:10 Carbon Dioxide 24 mmol/L (21-32) 11/28/19 23:10 Anion Gap 5 MMOL/L (8-16) L 11/28/19 23:10 BUN 15.7 mg/dL (7-18) 11/28/19 23:10 Creatinine 0.7 mg/dL (0.55-1.3) 11/28/19 23:10 Est GFR (CKD-EPI)AfAm 142.54 11/28/19 23:10 Est GFR (CKD-EPI)NonAf 122.98 11/28/19 23:10 Random Glucose 88 mg/dL (74-106) 11/28/19 23:10 Calcium 8.7 mg/dL (8.5-10.1) 11/28/19 23:10 Total Bilirubin 0.4 mg/dL (0.2-1) 11/28/19 23:10 AST 12 U/L (15-37) L 11/28/19 23:10 ALT 15 U/L (13-61) 11/28/19 23:10 Alkaline Phosphatase 49 U/L (45-117) 11/28/19 23:10 Total Protein 7.2 g/dl (6.4-8.2) 11/28/19 23:10 Albumin 4.0 g/dl (3.4-5.0) 11/28/19 23:10 Beta HCG, Quant < 1.0 mIU/ml 11/28/19 23:10 Urine Color Yellow 11/28/19 22:57 Urine Appearance Turbid 11/28/19 22:57 Urine pH 8.0 (5.0-8.0) 11/28/19 22:57 Ur Specific [place] 1.022 (1.010-1.035) 11/28/19 22:57 Urine Protein Negative (NEGATIVE) 11/28/19 22:57 Urine Glucose (UA) Negative (NEGATIVE) 11/28/19 22:57 Urine Ketones Negative (NEGATIVE) 11/28/19 22:57 Urine Blood Negative (NEGATIVE) 11/28/19 22:57 Urine Nitrite Negative (NEGATIVE) 11/28/19 22:57 Urine Bilirubin Negative (NEGATIVE) 11/28/19 22:57 Urine Urobilinogen 1.0 mg/dL (0.2-1.0) 11/28/19 22:57 Ur Leukocyte Esterase Negative (NEGATIVE) 11/28/19 22:57 Urine HCG, Qual Negative 11/28/19 22:57 No leukocytosis. No anemia. No ODESSA. No electrolyte abnormalities. No UTI Negative urine No thrombocytopenia. Normal INR Blood Type A POSITIVE 11/28/19 23:10 11/29/19 00:35 [facility] report: Referring Physician: ELKE RAPP Comments: Tomasz Schulz MD wrote on Nov 29, 2019 at 12:34 AM: Referring Physician: ELKE RAPP Patient Name: TWIN ASHBY THIS IS A PRELIMINARY REPORT FROM [facility] DATE OF SERVICE: 2019-11-28 23:28:06 IMAGES: 31 EXAM: Transabdominal pelvic ultrasound, endovaginal pelvic ultrasound and pelvic duplex HISTORY: Vaginal bleeding COMPARISON: None. FINDINGS: Transabdominal pelvic ultrasound: Left ovary 2.2 cm in length, appears normal and demonstrates normal flow. Endovaginal pelvic ultrasound:Uterus is anteverted and measures 8.1centimeters in length. The endometrium is 1.3millimeters in thickness. There are no fibroids. The right ovary is not visualized there is no significant free fluid. Pelvic duplex: There is normal arterial and venous flow in the left ovary IMPRESSION: Normal uterus and left ovary. Nonvisualization of the right ovary. THIS DOCUMENT HAS BEEN ELECTRONICALLY SIGNED Hayden cShulz MD 11/29/2019 00:33 TERESA Villalba. Please call [facility] Serviceperson [phone] ([phone]) with questions. Tomasz Schulz MD Clinicians - Please contact [facility] Serviceperson with further questions at [phone]) Patients - Please contact your Ordering Provider with questions. Results explained to patient. Copy of results given to patient. Pt advised to F/U with OBGYN promptly, immediate condom use, consult OBGYN regarding control methods, ibuprofen for pain. Pt discharged. Pt given return precautions. OBGYN referrals given. Discharge - Discharge Information Problems reviewed: Yes Clinical Impression/Diagnosis: Vaginal bleeding Condition: Stable Disposition: HOME - Admission No - Follow up/Referral Referrals: Joe Buck MD [Primary Care Provider] - Vitor Madrigal MD [Staff Physician] - Gerda Nair MD [Staff Physician] - Roberto Zhang MD [Staff Physician] - - Patient Discharge Instructions Patient Printed Discharge Instructions: How to Use a Condom, DI for Vaginal Bleeding Additional Instructions: Follow up with your APPLICATION ARCHITECT doctor within three days regarding your emergency department visit. Your care is not complete until you follow up. Bring all paperwork given to you today to your appointment. I have provided you with a referral should you need it. Start using condoms immediately. Please discuss with you with your APPLICATION ARCHITECT doctor a new form of control, as your Nexplanon may no longer be effective. Take ibuprofen over the counter for the pain. Take as advise on label. Take with food as it can cause stomach discomfort. Return to the emergency department for soaking through more than two cards within two hours, lightheadedness, passing out, chest pain, shortness of breath , fever, intractable vomiting, increasing pain. - Post Discharge Activity Work/Back to School Note: Back to Work
--- NOTE | 2019-11-28 22:54 | PDOC ---
Attending Attestation - Resident Resident Name: RuthMaria Fernanda - ED Attending Attestation I have performed the following: I have examined & evaluated the patient, The case was reviewed & discussed with the resident, I agree w/resident's findings & plan - HPI HPI: 11/28/19 23:23 Pt has no PMHx; she has a weakness; she thinks she may be . She has an extra menses. 11/29/19 01:18 - Physicial Exam PE: 11/29/19 19:47 Agree with resident exam. Normal vag exam - Medical Decision Making 11/28/19 23:23 Labs pending 11/29/19 19:48 labs normal and pt is ready to go home
[2019-11-28 23:10] LABS: URINE APPEARANCE TURBID; URINE BILIRUBIN NEGATIVE (NEGATIVE); URINE COLOR YELLOW; URINE GLUCOSE (UA) NEGATIVE (NEGATIVE); URINE KETONE NEGATIVE (NEGATIVE); URINE LEUK ESTERASE NEGATIVE (NEGATIVE); URINE NITRITE NEGATIVE (NEGATIVE); URINE PROTEIN NEGATIVE (NEGATIVE)
[2019-11-28 23:21] LABS: BASO % 0.8 % (0-2.0); EOS % 4.1 % (0-4.5); HEMOGLOBIN 12.4 GM/dL (10.7-15.3); LYMPH % 42.4 % (8-40); MCH 33.5 pg (25.7-33.7); MCHC 34.5 g/dl (32.0-36.0); MEAN CELL VOLUME 97.1 fl (80-96); MEAN PLT VOLUME 7.8 fl (7.5-11.1); MONO % 9.6 % (3.8-10.2); NEUT % 43.1 % (42.8-82.8); PLATELET COUNT 208 K/MM3 (134-434); RBC 3.71 M/mm3 (3.60-5.2); RDW 12.8 % (11.6-15.6); WHITE BLOOD COUNT 5.1 K/mm3 (4.0-10.0)
[2019-11-28 23:35] LABS: INR 1.05 (0.83-1.09); PROTHROMBIN TIME (PATIENT) 12.4 SEC (9.7-13.0)
[2019-11-28 23:37] LABS: ACTIVATED PTT 36.7 SECONDS (25.2-36.5)
[2019-11-28 23:48] LABS: ALK PHOS 49 U/L (45-117); ANION GAP 5 MMOL/L (8-16); BILIRUBIN,TOTAL 0.4 mg/dL (0.2-1); BLOOD UREA NITROGEN 15.7 mg/dL (7-18); CALCIUM 8.7 mg/dL (8.5-10.1); CHLORIDE 113 mmol/L (98-107); CO2 24 mmol/L (21-32); CREATININE 0.7 mg/dL (0.55-1.3); GLUCOSE,RANDOM 88 mg/dL (74-106); POTASSIUM 3.9 mmol/L (3.5-5.1); SGOT/AST 12 U/L (15-37); SGPT/ALT 15 U/L (13-61); SODIUM 142 mmol/L (136-145); TOT PROT 7.2 g/dl (6.4-8.2)
== END 2019-11-29 00:56 | disposition home or self-care (01) ==
LOC: JER 22:40
DX: N93.8 Other specified abnormal uterine and vaginal bleeding (principal); R55 Syncope and collapse; Z97.5 Presence of (intrauterine) contraceptive device
CPT/HCPCS: 36415; 76830-TC; 80053; 81003; 84702; 84703; 85025; 85610; 85730; 86850; 86900; 86901; 87086; 99285-25

== ENCOUNTER 2020-05-23 12:41 | Emergency (ER) | payer OTHER ==
[2020-05-23 12:45] VITALS: BP 102/63; PULSE 97; TEMP 98.5; BMI 21.5
--- NOTE | 2020-05-23 12:49 | PDOC ---
Rapid Medical Evaluation Time Seen by Provider: 05/23/20 12:43 Medical Evaluation: Allergies Allergy/AdvReac Type Severity Reaction Status Date / Time latex Allergy Mild Swelling Verified 05/23/20 12:43 [place] FOOD Allergy Intermediate Swelling Uncoded 05/23/20 12:43 05/23/20 12:43 Pt presents for two days of vaginal bleeding, currently 16 weeks preg. LMP 02/02/2020. OB at [address] States the blood has been bright red. Denies dysuria Exam: abdomen SNTNR, NAD Orders: Labs, Preg US Pt to proceed to the ER for further evaluation Discharge Disposition - Diagnosis Vaginal bleeding - Referrals - Patient Instructions - Post Discharge Activity
--- NOTE | 2020-05-23 14:47 | PDOC ---
History of Present Illness - General Chief Complaint: Vaginal Bleeding Stated Complaint: 16 W PREG/VAG BLEEDING Time Seen by Provider: 05/23/20 12:43 History Source: Patient Exam Limitations: Clinical Condition - History of Present Illness Travel History: No Initial Comments: 05/23/20 14:42 Patient with no significant past medical history G3, P2 LMP February 01 present with complaint of 2-day history of vaginal spotting a 16+ weeks gestational age. Patient reported small amount of bright red blood when she used the bathroom. Denies bleeding enough to use pad. Denies urinary urgency, dysuria, abdominal pains. Denies any other symptoms. Denies history of miscarriage Timing/Duration: reports: other (2 days) Pain Radiation: reports: no radiation Past History - Medical History Allergies/Adverse Reactions: Allergies Allergy/AdvReac Type Severity Reaction Status Date / Time latex Allergy Mild Swelling Verified 05/23/20 12:43 MARTINIQUAIS FOOD Allergy Intermediate Swelling Uncoded 05/23/20 12:43 Home Medications: Ambulatory Orders NK [No Known Home Medication] 11/29/19 Asthma: Yes (Last attack 8yrs ago) Cancer: No Cardiac Disorders: No CVA: No COPD: No Diabetes: No HTN: No Seizures: No Thyroid Disease: No - Reproductive History Is Patient Now?: Yes Cervical CA: No Dysfunctional Uterine Bleeding: No Ectopic : No Endometrial CA: No Polycystic Ovaries: No Tubal Ligation: No - Immunization History Immunization Up to Date: Yes - Psycho-Social/Smoking History Smoking Status: No Smoking History: Never smoked Have you smoked in the past 12 months: Yes Number of Cigarettes Smoked Daily: 1 If you are a former smoker, when did you quit?: 2 months ago - Substance Abuse Hx (Audit-C & DAST Scrn) How often the patient has a drink containing alcohol: Never Score: In Men: 4 or > Positive; In Women: 3 or > Positive: 0 Screen Result (Pos requires Nsg. Audit-10AR): Negative In the last yr the pt used illegal drug/Rx for NonMed reason: No Score: Yes response is considered Positive: 0 Screen Result (Positive result requires Nsg. DAST-10): Negative Review of Systems - Review of Systems Able to Perform ROS?: Yes Is the patient limited Croatian proficient: No Constitutional: No: Chills, Fever, Malaise HEENTM: No: Symptoms Reported, See HPI, Eye Pain, Blurred Vision, Tearing, Re cent change in vision, Double Vision, Cataracts, Ear Pain, Ocular Prothesis, Ear Discharge, Nose Pain, Nose Congestion, Tinnitus, Nose Bleeding, Hearing Loss, Throat Pain, Throat Swelling, Mouth Pain, Dental Problems, Difficulty Swallowing, Mouth Swelling, Other Respiratory: No: Symptoms reported, See HPI, Cough, Orthopnea, Shortness of Breath, SOB with Exertion, SOB at Rest, Stridor, Wheezing, Productive cough, Hemoptysis, Other Cardiac (ROS): No: Symptoms Reported ABD/GI: Yes: Symptoms Reported, See HPI. No: Constipated, Diarrhea, Vomiting, Abdominal cramping : No: Symptoms Reported, Burning, Frequency, Urgency All Other Systems: Reviewed and Negative *Physical Exam - Vital Signs Last Vital Signs Temp Pulse Resp BP Pulse Ox 98.5 F 97 H 18 102/63 100 05/23/20 12:43 05/23/20 12:43 05/23/20 12:43 05/23/20 12:43 05/23/20 12:43 - Physical Exam General Appearance: Yes: Nourished, Appropriately Dressed. No: Apparent Distress HEENT: positive: Normal ENT Inspection Neck: positive: Supple Respiratory/Chest: negative: Respiratory Distress, Accessory Muscle Use Cardiovascular: positive: Regular Rhythm, Regular Rate Female Pelvic Exam: positive: normal external exam, cervical os closed, normal adnexa, normal size ovaries. negative: CMT, discharge, lesions, Bartholin mass, adnexal tenderness, vaginal bleeding Gastrointestinal/Abdominal: positive: Normal Bowel Sounds. negative: Tender, Flat Musculoskeletal: positive: Normal Inspection. negative: CVA Tenderness Extremity: positive: Normal Inspection, Normal Range of Motion Integumentary: positive: Normal Color Neurologic: positive: Fully Oriented, Alert, Normal Mood/Affect, Normal Response, Motor Strength 02/01 ED Treatment Course - LABORATORY CBC & Chemistry Diagram: 05/23/20 14:30 05/23/20 14:30 Medical Decision Making - Medical Decision Making 05/23/20 14:43 Patient with no significant past medical history G3, P2 LMP February 01 present with complaint of 2-day history of vaginal spotting a 16+ weeks gestational age. Patient reported small amount of bright red blood when she used the bathroom. Denies bleeding enough to use pad. Denies urinary urgency, dysuria, abdominal pains. Denies any other symptoms. Denies history of miscarriage Vaginal exam unremarkable with no blood in vaginal vault. Cervical os closed. No CMT. No abdominal tenderness on exam. Patient in no acute distress. Official ultrasound shows live IUP of 16+ weeks with heart rate. Patient pending CBC and chemistry lab and urine labs. 05/23/20 18:02 CBC and chemistry lab unremarkable. UA shows no UTI and patient has no urinary symptoms. Will hold off for urine culture. Patient stable for discharge with OB follow-up Discharge - Discharge Information Problems reviewed: Yes Clinical Impression/Diagnosis: Vaginal bleeding, Threatened in second trimester Condition: Stable Disposition: HOME - Admission No - Follow up/Referral Referrals: Joe Buck MD [Primary Care Provider] - - Patient Discharge Instructions Patient Printed Discharge Instructions: DI for Threatened Additional Instructions: no vaginal bleeding at this time. Ultrasound of your baby shows normal with heart rate. Follow-up back with your OB. Come back to the emergency room if worsening vaginal bleeding or severe abdominal pain - Post Discharge Activity
[2020-05-23 14:51] LABS: BASO % 0.2 % (0-2.0); EOS % 1.2 % (0-4.5); HEMATOCRIT 34.6 % (32.4-45.2); HEMOGLOBIN 12.1 GM/dL (10.7-15.3); LYMPH % 20.9 % (8-40); MCH 33.2 pg (25.7-33.7); MCHC 34.9 g/dl (32.0-36.0); MEAN CELL VOLUME 95.1 fl (80-96); MEAN PLT VOLUME 7.4 fl (7.5-11.1); MONO % 5.9 % (3.8-10.2); NEUT % 71.8 % (42.8-82.8); PLATELET COUNT 202 K/MM3 (134-434); RBC 3.64 M/mm3 (3.60-5.2); RDW 12.6 % (11.6-15.6); WHITE BLOOD COUNT 6.1 K/mm3 (4.0-10.0)
[2020-05-23 15:26] LABS: ALBUMIN 3.7 g/dl (3.4-5.0); BILIRUBIN,TOTAL 0.5 mg/dL (0.2-1); BLOOD UREA NITROGEN 6.1 mg/dL (7-18); CALCIUM 8.9 mg/dL (8.5-10.1); CREATININE 0.6 mg/dL (0.55-1.3); POTASSIUM 3.8 mmol/L (3.5-5.1); TOT PROT 7.4 g/dl (6.4-8.2)
[2020-05-23 17:16] LABS: EPI CELLS 17 /uL (0-25.1); HYALINE CASTS 1 /uL (0-3.1); URINE APPEARANCE CLEAR; URINE BACTERIA 47 /uL (0-1359); URINE BILIRUBIN NEGATIVE (NEGATIVE); URINE COLOR YELLOW; URINE GLUCOSE (UA) NEGATIVE (NEGATIVE); URINE KETONE NEGATIVE (NEGATIVE); URINE LEUK ESTERASE TRACE (NEGATIVE); URINE NITRITE NEGATIVE (NEGATIVE); URINE PROTEIN NEGATIVE (NEGATIVE); URINE RBC 4 /uL (0-23.9); URINE WBC 11 /uL (0-25.8)
== END 2020-05-23 16:05 | disposition home or self-care (01) ==
LOC: JER 12:41
DX: O26.852 Spotting complicating pregnancy, second trimester (principal); O20.0 Threatened abortion
CPT/HCPCS: 36415; 76801-TC; 80053; 81003; 84702; 85025; 86850; 86900; 86901; 87086; 99284-25

== ENCOUNTER 2020-08-01 18:38 | Emergency (ER) | payer OTHER ==
[2020-08-01] MEDS ORDERED: ACETAMINOPHEN 325 MG TABLET (FP) PO ONE (18:45)
[2020-08-01 18:46] VITALS: BMI 22.6
--- NOTE | 2020-08-01 18:47 | PDOC ---
Rapid Medical Evaluation Time Seen by Provider: 08/01/20 18:44 Medical Evaluation: Allergies Allergy/AdvReac Type Severity Reaction Status Date / Time latex Allergy Mild Swelling Verified 08/01/20 18:41 ARMENIAN FOOD Allergy Intermediate Swelling Uncoded 08/01/20 18:41 08/01/20 18:45 CC: fell in kitchen on wet floor landing on left side, 25 weeks , also with urinary complaints Exam: tachy, plan: urine and u/s, tylenol Discharge Disposition - Diagnosis Abdominal pain - Referrals - Patient Instructions - Post Discharge Activity
--- OUTSIDE RECORDS SUMMARY | 2020-08-01 18:55 | XMS ---
:1995 Author Organization [facility] Support Name Relationship Address Phone UE, UNEMPLOYED Unavailable Unavailable Unavailable UE Unavailable Unavailable Unavailable CHARO [employer] [address] [place] [address] [place] [address] BEBA QUINTANA [address] [place] [address] STUDENT Unavailable Unavailable [place] [address] Re-disclosure Warning The records that you are about to access may contain information from federally- assisted alcohol or drug abuse programs. If such information is present, then the following federally mandated warning applies: This information has been disclosed to you from records protected by federal confidentiality rules (42 CFR part 2). The federal rules prohibit you from making any further disclosure of this information unless further disclosure is expressly permitted by the written consent of the person to whom it pertains or as otherwise permitted by 42 CFR part 2. A general authorization for the release of medical or other information is NOT sufficient for this purpose. The Federal rules restrict any use of the information to criminally investigate or prosecute any alcohol or drug abuse patient.The records that you are about to access may contain highly sensitive health information, the redisclosure of which is protected by Article 27-F of the [facility] Public Health law. If you continue you may haveaccess to information: Regarding HIV / AIDS; Provided by facilities licensed or operated by the [facility] Office of Mental Health; or Provided by the [facility] Office for People With Developmental Disabilities. If such information is present, then the following [facility] mandated warning applies: This information has been disclosed to you from confidential records which are protected by state law. State law prohibits you from making any further disclosure of this information without the specific written consent of the person to whom it pertains, or as otherwise permitted by law. Any unauthorized further disclosure in violation of state law may result in a fine or custodial sentence or both. A general authorization for the release of medical or other information is NOT sufficient authorization for further disclosure. Insurance Providers Payer name Policy type Policy ID Covered Covered alliance party's Policy P lavern / Coverage alliance party ID relationship to [employer] Inf ormation type tenorio [facility] MEDICAID [id number] [facility] [place] [id number] SP [id number] [facility] MEDICAID [id number] O SELF PAY SP INSURANCE MEDICAID [id number] [employer] O [id number] HEALTH PLAN
--- NOTE | 2020-08-01 20:30 | PD.OB.PROG ---
Past Medical History - Primary Care Physician PCP:: Vitor Madrigal Documenting Provider Type: Attending - Admission Chief Complaint: S/P fall History of Present Illness: Patient was washing her dishes and fell on her left side at approximately 6pm. She denies VB, LOF, and contractions. She reports +FM History Source: Patient Limitations to Obtaining History: No Limitations - Nursing Documentation Nursing Documentation Reviewed: Yes - Past Medical History Cardio/Vascular: Denies/None Pulmonary: Denies/None Gastrointestinal: Denies/None Hepatobiliary: Denies/None Renal/: Denies/None Reproductive: Denies/None Heme/Onc: Denies/None Infectious Disease: Denies/None Psych: Denies/None Musculoskeletal: Denies/None Rheumatology: Denies/None ENT: Denies/None Endocrine: Denies/None Dermatology: Denies/None - Past Surgical History Past Surgical History: Yes: None - Smoking History Smoking history: Never smoked Have you smoked in the past 12 months: No Aproximately how many cigarettes per day: 1 If you are a former smoker, when did you quit?: 2 months ago - Alcohol/Substance Use Hx Alcohol Use: No - Social History History of Recent Travel: No Review of Systems - Review of Systems Constitutional: reports: No Symptoms Eyes: reports: No Symptoms HENT: reports: No Symptoms Neck: reports: No Symptoms Gastrointestinal: reports: No Symptoms Genitourinary: reports: No Symptoms Breasts: reports: No Symptoms Reported Musculoskeletal: reports: No Symptoms Integumentary: reports: No Symptoms Neurological: reports: No Symptoms Endocrine: reports: No Symptoms Hematology/Lymphatic: reports: No Symptoms Psychiatric: reports: No Symptoms Physical Exam - Obstetrical Vital Signs: Vital Signs Temperature 98.4 F 08/01/20 18:41 Pulse Rate 112 H 08/01/20 18:41 Respiratory Rate 16 08/01/20 18:41 Blood Pressure 117/71 08/01/20 18:41 O2 Sat by Pulse Oximetry (%) 100 08/01/20 18:41 Constitutional: Yes: Well Nourished HENT: Yes: Atraumatic Cardiovascular: Yes: Regular Rate and Rhythm - Abdominal Exam/OB Contractions: No Monitor Mode: External Heart Rate (range): 140 Category: I Accelerations: Uniform Decelerations: None - Vaginal Exam/OB Vaginal Exam Deferred: No Speculum Exam: No Dilatation (cm): 0 Effacement (%): 0 Amniotic Membrane Status: Intact Station: -3 - Physical Exam Musculoskeletal: Yes: WNL (abd: gravid, n/t, n/d, no rebound, no guarding, no ecchymosis.) Extremities: Yes: WNL Edema: No Integumentary: Yes: WNL Deep Tendon Reflex Grade: Normal +2 ...Motor Strength: WNL Psychiatric: Yes: Alert, Oriented Assessment/Plan 25 y/o @ 25.6wks, s/p fall in stable condition, no direct abdominal trauma, reassuring status -CBC -continuous monitoring -Observe for at least 6 hours post-fall
[2020-08-01 21:26] LABS: BASO % 0.1 % (0-2.0); EOS % 1.5 % (0-4.5); HEMOGLOBIN 10.4 GM/dL (10.7-15.3); LYMPH % 17.5 % (8-40); MCH 32.1 pg (25.7-33.7); MCHC 33.4 g/dl (32.0-36.0); MEAN PLT VOLUME 7.3 fl (7.5-11.1); MONO % 7.7 % (3.8-10.2); NEUT % 73.2 % (42.8-82.8); PLATELET COUNT 220 K/MM3 (134-434); RBC 3.23 M/mm3 (3.60-5.2); RDW 12.2 % (11.6-15.6); WHITE BLOOD COUNT 6.5 K/mm3 (4.0-10.0)
[2020-08-01 22:41] LABS: EPI CELLS 24 /uL (0-25.1); HYALINE CASTS 7 /uL (0-3.1); PH,URINE 6.5 (5.0-8.0); URINE APPEARANCE CLEAR; URINE BACTERIA 740 /uL (0-1359); URINE BILIRUBIN NEGATIVE (NEGATIVE); URINE COLOR YELLOW; URINE GLUCOSE (UA) NEGATIVE (NEGATIVE); URINE KETONE NEGATIVE (NEGATIVE); URINE LEUK ESTERASE 2+ (NEGATIVE); URINE NITRITE NEGATIVE (NEGATIVE); URINE PROTEIN NEGATIVE (NEGATIVE); URINE RBC 8 /uL (0-23.9); URINE WBC 366 /uL (0-25.8)
[2020-08-01 23:00] VITALS: BP 105/53; PULSE 99; TEMP 98.2
== END 2020-08-02 01:40 | disposition home or self-care (01) ==
LOC: JER 18:38
DX: O26.892 Other specified pregnancy related conditions, second trimester (principal); O9A.212 Injury, poisoning and certain other consequences of external causes complicating pregnancy, second trimester; Z3A.25 25 weeks gestation of pregnancy
CPT/HCPCS: 36415; 76816-TC; 81003; 85025; 87086; 99284-25

== ENCOUNTER 2020-11-02 00:15 | Inpatient (IN) | payer SELFPAY ==
[~2020-11-02 00:15] MED LIST: ELECTROLYTE-148 SOLN 1,000 ML IV SCH
[2020-11-02] MEDS ORDERED: ELECTROLYTE-148 SOLN 1,000 ML IV SCH (01:00)
[2020-11-02 01:25] LABS: BASO % 0.1 % (0-2.0); EOS % 0.7 % (0-4.5); HEMATOCRIT 30.4 % (32.4-45.2); HEMOGLOBIN 9.9 GM/dL (10.7-15.3); LYMPH % 21.7 % (8-40); MCH 28.3 pg (25.7-33.7); MCHC 32.6 g/dl (32.0-36.0); MEAN CELL VOLUME 86.7 fl (80-96); MEAN PLT VOLUME 7.4 fl (7.5-11.1); MONO % 8.3 % (3.8-10.2); NEUT % 69.2 % (42.8-82.8); PLATELET COUNT 301 K/MM3 (134-434); RBC 3.51 M/mm3 (3.60-5.2); RDW 13.3 % (11.6-15.6); WHITE BLOOD COUNT 7.9 K/mm3 (4.0-10.0)
[2020-11-02 01:34] LABS: PROTHROMBIN TIME (PATIENT) 12.1 SEC (9.7-13.0)
[2020-11-02 01:36] LABS: ACTIVATED PTT 27.2 SECONDS (25.2-36.5)
[2020-11-02 01:44] LABS: POTASSIUM 3.8 mmol/L (3.5-5.1)
[2020-11-02 01:45] LABS: CALCIUM 8.6 mg/dL (8.5-10.1)
[2020-11-02 01:47] LABS: BLOOD UREA NITROGEN 7.3 mg/dL (7-18)
[2020-11-02 01:50] LABS: CREATININE 0.6 mg/dL (0.55-1.3)
[2020-11-02 01:57] VITALS: BMI 29.0
[2020-11-02] MEDS ORDERED: FENTANYL/BUPIVACAINE/NS/PF - PCEA - 50 ML DISP.SYRIN EP ONE ×2 (02:10→06:42)
[2020-11-02] MEDS ORDERED: OXYTOCIN 20 UNITS in 0.9% NS 20 UNIT/1,000 ML INFUS.BAG IV ONE (02:10)
[2020-11-02] MEDS ORDERED: LIDOCAINE HCL 1% PRESERVATIVE FREE - 30ML VIAL ONE (02:10)
[2020-11-02] MEDS ORDERED: PCA PUMP NR ONE ×2 (02:10→07:20)
[2020-11-02] MEDS ORDERED: NALOXONE HCL 0.4 MG/ML VIAL IVPUSH PRN (02:51)
[2020-11-02] MEDS ORDERED: FENTANYL/BUPIVACAINE/NS/PF - PCEA - 50 ML DISP.SYRIN EP SCH (03:00)
[2020-11-02] MEDS ORDERED: OXYTOCIN 30 UNITS in 0.9% NS 30 UNIT/500 ML INFUS.BAG IVPB SCH (04:45)
[2020-11-02] MEDS ORDERED: OXYTOCIN 30 UNITS in 0.9% NS 30 UNIT/500 ML INFUS.BAG IVPB ONE (04:46)
[2020-11-02] MEDS ORDERED: SUCCINYLCHOLINE CHLORIDE 200 MG/10 ML SYRINGE ONE (06:27)
[2020-11-02] MEDS ORDERED: PROPOFOL 20 ML ONE (06:28)
[2020-11-02] MEDS ORDERED: BUPIVACAINE HCL/PF 0.25% (2.5MG/ML) 10 ML VIAL ONE (06:31)
[2020-11-02] MEDS ORDERED: SODIUM CHLORIDE 100 ML IVPB ONE (06:31)
[2020-11-02] MEDS ORDERED: BISACODYL 10 MG SUPP.RECT RC PRN (07:16)
[2020-11-02] MEDS ORDERED: BENZOCAINE 28 GM HEMORRHOIDAL OINTMENT TP PRN (07:16)
[2020-11-02] MEDS ORDERED: BENZOCAINE 20% 57 GM BOTTLE TP PRN (07:16)
[2020-11-02] MEDS ORDERED: WITCH HAZEL 50% (TUCKS) 40 PAD/JAR PAD TP PRN (07:16)
[2020-11-02] MEDS ORDERED: METHYLERGONOVINE MALEATE 0.2 MG/1 ML AMP IM PRN (07:16)
[2020-11-02] MEDS: ACETAMINOPHEN 325 MG TABLET (FP) PO PRN ×2 (09:44→19:19)
[2020-11-02] MEDS: IBUPROFEN 600 MG TABLET (FP) PO PRN ×2 (09:44→19:20)
[2020-11-02] MEDS: FERROUS SO4 325 MG TABLET (FP) PO SCH ×2 (09:44→17:02)
[2020-11-02] MEDS: PRENATAL VITAMINS W/ FOLIC ACID TABLET (FP) PO SCH (09:44)
[2020-11-02] MEDS: OXYTOCIN 20 UNITS in 0.9% NS 20 UNIT/1,000 ML INFUS.BAG IV SCH (22:02)
[2020-11-03] MEDS: ACETAMINOPHEN 325 MG TABLET (FP) PO PRN (09:02)
[2020-11-03] MEDS: IBUPROFEN 600 MG TABLET (FP) PO PRN (09:02)
[2020-11-03] MEDS: PRENATAL VITAMINS W/ FOLIC ACID TABLET (FP) PO SCH (09:03)
[2020-11-03] MEDS: diphenhydrAMINE HCL 25 MG CAPSULE (FP) PO PRN ×2 (09:03→17:32)
[2020-11-03] MEDS: FERROUS SO4 325 MG TABLET (FP) PO SCH ×2 (09:03→17:32)
[2020-11-03 09:18] LABS: BASO % 0.2 % (0-2.0); EOS % 2.7 % (0-4.5); HEMATOCRIT 29.7 % (32.4-45.2); HEMOGLOBIN 9.8 GM/dL (10.7-15.3); LYMPH % 18.6 % (8-40); MCH 28.5 pg (25.7-33.7); MCHC 32.9 g/dl (32.0-36.0); MEAN CELL VOLUME 86.8 fl (80-96); MEAN PLT VOLUME 7.2 fl (7.5-11.1); MONO % 6.1 % (3.8-10.2); NEUT % 72.4 % (42.8-82.8); PLATELET COUNT 280 K/MM3 (134-434); RBC 3.43 M/mm3 (3.60-5.2); RDW 13.8 % (11.6-15.6); WHITE BLOOD COUNT 5.7 K/mm3 (4.0-10.0)
[2020-11-03] MEDS: OXYTOCIN 20 UNITS in 0.9% NS 20 UNIT/1,000 ML INFUS.BAG IV SCH (19:54)
[2020-11-03] MEDS ORDERED: SENNOSIDES/DOCUSATE COMBO (SENNA PLUS) TABLET (UD) PO PRN (22:00)
[2020-11-04] MEDS: PRENATAL VITAMINS W/ FOLIC ACID TABLET (FP) PO SCH (09:05)
[2020-11-04] MEDS: FERROUS SO4 325 MG TABLET (FP) PO SCH (09:05)
[2020-11-04] MEDS: diphenhydrAMINE HCL 25 MG CAPSULE (FP) PO PRN (09:05)
[2020-11-04 10:17] VITALS: BP 114/62; PULSE 72; TEMP 98.4
== END 2020-11-04 13:30 | disposition home or self-care (01) | DRG 560 ==
LOC: JLDR 00:15 → J3W 09:16
PROVIDERS: ADMIT Obstetrics & Gynecology; ATTEND Obstetrics & Gynecology
PROC: 10E0XZZ Delivery of Products of Conception, External Approach (ICD-10-PCS; principal; 2020-11-02)
DX: O80 Encounter for full-term uncomplicated delivery (principal); Z3A.39 39 weeks gestation of pregnancy; Z37.0 Single live birth
CPT/HCPCS: 36415; 59409; 80048; 85025; 85610; 85730; 86780; 86850; 86900; 86901; C9803; U0003